=== PATIENT | male | born 1940 | race Caucasian/White ===

== ENCOUNTER 2016-08-23 21:37 | Emergency (ER) | payer MEDICARE ==
[~2016-08-23] VITALS: Ht 175.3 cm; Wt 68.2 kg
[~2016-08-23 21:37] MED LIST: CARV25TA2 PO; FUR20 PO; LISI-571 PO; PIRO10CA2 PO; POLY17PO6 PO; ROSU40TA PO
[2016-08-23 22:05] VITALS: BP 144/78; PULSE 79; RESP 20; O2SAT 97
--- NOTE | 2016-08-23 22:20 | ED.REPORT ---
HPI-Abd Pain M 40 and Over Date of Service Aug 23, 2016 ED Provider: Jalen Barkley DO Pt is a 75 year old male with a history of pacemaker insertion, RI, and HTN who presents to the ED complaining of hematuria onset today. The pt c/o associated dysuria and increased urinary frequency. He denies fever, chills, and back pain. The pt reports that the hematuria occurred only 1x since onset. Nursing Notes Stated Complaint: POSSIBLE BLADDER INFECTION Chief Complaint: Male Abdominal Pain Nursing Notes Reviewed: Yes Allergies: Coded Allergies: No Known Allergies (Unverified , 02/10/16) Scheduled Carvedilol (Carvedilol) 25 Mg Tablet 25 MG PO BID Furosemide (Furosemide) 20 Mg Tab 20 MG PO DAILY Lisinopril (Lisinopril) 5 Mg Tablet 5 MG PO DAILY Nitrofurantoin Monohyd/M-Cryst (MacroBid) 100 Mg Capsule 100 MG PO BID Rosuvastatin Calcium (Crestor) 40 Mg Tablet 40 MG PO DAILY Scheduled PRN Polyethylene Glycol 3350 (Miralax) 17 Gm Powd.pack 17 GM PO DAILY PRN PRN For Constipation Miscellaneous Medications Piroxicam (Piroxicam) 10 Mg Capsule 10 MG PO General Time Seen by MD: 22:19 Chief Complaint Other (Hematuria) Hx Obtained From: Patient Arrived By: Walk-in Sudden in Onset?: No Onset Occurred: Just prior to arrival Symptom Duration: Since onset Quality: Painful Severity: Current: Moderate Severity: Maximum: Moderate Recent Healthcare: No recent doctor visit, No recent hospitalization Similar Sx Previous: No Past Medical History Past Medical History Notes: PCP: Dr. Valle Past Medical History RI x2 Reports: Hypertension Past Surgical History Pacemaker CABG - 1990 Cardiac stent Family History noncontributory Smoking History Former Smoker Social History Alcohol Use: Denies alcohol use Drug Use: Denies drug use Other Social History: Good social support, Ambulatory Status Independent Review of Systems Constitutional: Denies: Chills, Fever Male: Reports Dysuria, Reports Hematuria, Reports Urinary frequency Musculoskeletal: Denies: Back pain Complete sys rev & neg: except as marked. Physical Exam Initial Vital Signs Vital Signs (First) Date Time Temp Pulse Resp B/P Pulse Ox O2 Delivery O2 Flow Rate FiO2 08/23/16 22:05 37 79 20 144/78 97 Room Air Initial VS: Reviewed ENT: Mucous membranes moist, Conjunctiva normal, No scleral icterus Neck: Supple, Full range of motion Extremities: Vascular intact, Neuro intact Skin: Warm, Dry, No cyanosis Neurologic: Alert, Oriented, Nonfocal Psychiatric: Mood/affect normal, Behavior normal General/Constitutional: Awake, Alert, Cooperative, Not toxic appearing Respiratory / Chest: Atraumatic, Breath sounds NL, Breath sounds = bilat Cardiovascular: Heart rate NL, Regular rhythm, Heart sounds NL Abdomen: Atraumatic, Soft, Non-tender Tenderness/Guarding/Rebound: Positive: Tender suprapubic Back: Atraumatic, Inspection NL, Full range of motion, No CVA tenderness Interpretation & Diagnostics Lab Results Interpretation Test 08/23/16 22:20 Urine Color Red (YELLOW) Urine Appearance Cloudy (CLEAR,HAZY) Urine pH 7.0 (5.0-8.0) Urine Specific [place] 1.010 (1.003-1.035) Urine Protein 100mg/dL (NEG,TRACE) Urine Glucose (UA) Negativemg/dL (NEGATIVE) Urine Ketones Negativemg/dL (NEGATIVE) Urine Occult Blood Large (NEGATIVE) Urine Nitrite Negative (NEGATIVE) Urine Bilirubin Negative (NEGATIVE) Urine Urobilinogen 2.0mg/dL (NORMAL) Urine Leukocyte Esterase Trace (NEGATIVE) Urine RBC >50/hpf (0-2) Urine WBC 6-10/hpf (0-5) Urine Epithelial Cells Occasional/hpf (NONE-MOD) Urine Crystals Amorphous urates (NONE Urine Bacteria Few/hpf (NONE-FEW) Urine Hyaline Casts None/lpf (NONE) Urine Granular Casts None seen (NONE SEEN) Urine Waxy Casts None seen (NONE SEEN) Urine Red Blood Cell Casts None seen (NONE SEEN) Urine White Blood Cell Casts None seen (NONE SEEN) Urine Mucus None seen (None Seen) Urine Trichomonas None seen (NONE SEEN) Urine Yeast None (NONE SEEN) Urinalysis Comment None Urine Culture Reflexed Indicated Re-Eval/Medical Decision Med Decision/Clinical Course I considered other etiologies such as pyelonephritis and sepsis but patient's vitals and exam were not consistent with this. He is well appearing on exam. I instructed him that he needs to follow up with his primary care provider to have a repeat urinalysis performed to assure that the hematuria has resolved and rule out things like bladder cancer. Certainly with the pyuria and his diagnoses is much more consistent with UTI. Source of Hx: Old records Time of Eval: 23:34 )( Re-Eval Abdomen: Soft Re-Evaluation/Progress Note: Pt rechecked. Informed pt of plan for discharge. Pt understands and agrees with plan for discharge. F/U instructions and RTER warnings given. All questions addressed. Counseled Regarding: Diagnosis, Lab results, Need for follow-up, When/why to return to ED Discharge & Departure Primary Impression: UTI (urinary tract infection) Urinary tract infection type: acute cystitis Hematuria presence: with hematuria Qualified Code: N30.01 - Acute cystitis with hematuria Disposition: Home Vital Signs - All Vital Signs Date Time Temp Pulse Resp B/P Pulse Ox O2 Delivery O2 Flow Rate FiO2 08/23/16 22:05 37 79 20 144/78 97 Room Air )( All Prior VS Reviewed: Yes Condition: Stable Patient Instructions: Urinary Tract Infection in Men (ED) Additional Instructions: Your story and your urine test are consistent with a urinary tract infection. You were treated with Macrobid 100 mg here in the ER. I would like you to continue this for 7 days. A prescription has been provided. If your symptoms worsen, return to the ER, particularly if you develop back pain , fevers, chills, or weakness. Follow up with your primary care provider early next week if symptoms are not improving. Referrals: Ollie Valle MD (PCP) Guru Attestation Portions of this note were transcribed by Geetha Chanel. I, Dr. Barkley personally performed the history, physical exam and medical decision-making; I reviewed and confirmed the accuracy of the information in the transcribed note. Signed by: Guru Quintanilla, 08/23/16 and 23:00 copies to: Ollie Valle MD, Gary R DO Aug 23, 2016 22:20 Geetha Venegas Aug 23, 2016 22:48
[2016-08-23 22:38] LABS: APPEARANCE,URINE CLOUDY (CLEAR,HAZY); COLOR,URINE RED (YELLOW); OCCULT BLOOD,URINE LARGE (NEGATIVE)
[2016-08-23] MEDS ORDERED: Nitrofurantoin Monohyd-Macrocryst 100 mg Capsule PO ONE (23:25)
[2016-08-23] MEDS ORDERED: NITR100 PO (23:26)
[2016-08-23] MEDS ORDERED: Phenazopyridine 97.5 mg Tablet PO ONE (23:35)
== END 2016-08-23 23:50 | disposition home or self-care (01) ==
LOC: SED 21:37
DX: N30.01 Acute cystitis with hematuria (principal); I25.2 Old myocardial infarction; I10 Essential (primary) hypertension; G30.9 Alzheimer's disease, unspecified; Z95.1 Presence of aortocoronary bypass graft; Z87.891 Personal history of nicotine dependence